=== PATIENT | male | born 1990 | race Caucasian/White ===

== ENCOUNTER 2017-03-19 08:16 | Emergency (ER) | payer MEDICAID ==
[~2017-03-19] VITALS: Ht 185.4 cm; Wt 105.0 kg
[2017-03-19] MEDS ORDERED: SODIUM CHLORIDE 0.9% 1,000 ML IV ONE (09:04)
[2017-03-19] MEDS ORDERED: MORPHINE SULFATE 4 MG/ML CPJ (NOT FOR IM USE) IV STA (09:04)
[2017-03-19] MEDS ORDERED: FAMOTIDINE 20MG/2ML VIAL IV STA (09:04)
[2017-03-19] MEDS ORDERED: ONDANSETRON HCL 4MG/2ML VIAL IV STA (09:04)
[2017-03-19 09:25] LABS: BASOPHILS % 0.4 % (0.0-2.0); EOSINOPHILS % 0.6 % (0.0-5.0); HEMATOCRIT. 43.5 % (42.0-52.0); HEMOGLOBIN. 14.9 g/dL (14.0-18.0); LYMPHOCYTES % 19.5 % (20.0-50.0); MEAN CORPUSCULAR HEMOGLOBIN 30.3 pg (28.0-32.0); MEAN CORPUSCULAR VOLUME 88.5 fL (80.0-94.0); MEAN PLATELET VOLUME 10.4 fl (7.4-10.4); MONOCYTES % 7.4 % (2.0-8.0); NEUTROPHILS % 72.1 % (40.0-76.0); PLATELET 160 x1000/uL (130-400); RED BLOOD CELL COUNT 4.92 mill/uL (4.7-6.1); RED CELL DISTRIBUTION WIDTH 13.3 % (11.6-14.6)
[2017-03-19 09:33] LABS: INR 1.1; PARTIAL THROMBOPLASTIN TIME 26.1 sec (24.0-34.0)
[2017-03-19 09:37] LABS: CARBON DIOXIDE 28 mEq/L (21-32); CHLORIDE 105 mEq/L (98-107)
[2017-03-19 10:07] LABS: CLARITY URINE CLEAR (CLEAR); COLOR URINE DARK YELLOW (YELLOW); GLUCOSE URINE NEGATIVE (NEGATIVE); KETONES URINE TRACE (NEGATIVE); LEUKOCYTE ESTERASE URINE NEGATIVE (NEGATIVE); NITRITE URINE NEGATIVE (NEGATIVE); OCCULT BLOOD URINE NEGATIVE (NEGATIVE); PROTEIN URINE NEGATIVE (NEGATIVE); SPECIFIC GRAVITY URINE 1.037 (1.005-1.030)
[2017-03-19 10:17] LABS: *AMPHETAMINES SCREEN URINE NEGATIVE (NEGATIVE); *BARBITURATES SCREEN URINE NEGATIVE (NEGATIVE); *BENZODIAZEPINES SCREEN URINE NEGATIVE (NEGATIVE); *COCAINE SCREEN URINE PRESUMTIVE POSITIVE (NEGATIVE); CANNABINOID URINE SCREEN PRESUMTIVE POSITIVE (NEGATIVE); METHADONE URINE SCREEN NEGATIVE (NEGATIVE); OPIATES URINE SCREEN PRESUMTIVE POSITIVE (NEGATIVE); PHENCYCLIDINE URINE SCREEN NEGATIVE (NEGATIVE)
[2017-03-19 12:01] VITALS: BP 151/102
[2017-03-19] MEDS ORDERED: IOHEXOL-300 100 ML BOTTLE ONE (13:13)
[2017-03-19] MEDS ORDERED: SODIUM CHLORIDE 0.9% 10ML VIAL ONE (13:13)
== END 2017-03-19 12:39 | disposition home or self-care (01) ==
LOC: ER 08:40
DX: R10.84 Generalized abdominal pain (principal); R11.10 Vomiting, unspecified; R19.7 Diarrhea, unspecified; R03.0 Elevated blood-pressure reading, without diagnosis of hypertension; F12.10 Cannabis abuse, uncomplicated; F14.10 Cocaine abuse, uncomplicated
CPT/HCPCS: 36415; 71010; 74177; 80053; 80305; 81003; 83690; 85025; 85610; 85730; 96361; 96374; 96375; 99285; A4216; J2270; J2405; J3490; J7030; Q9967; Z7610

== ENCOUNTER 2017-03-20 15:07 | Emergency (ER) | payer MEDICAID ==
[~2017-03-20] VITALS: Ht 182.9 cm; Wt 105.0 kg
[2017-03-20 15:17] VITALS: BP 152/99
== END 2017-03-20 20:59 | disposition left against medical advice (07) ==
LOC: ER 15:17
DX: R10.9 Unspecified abdominal pain (principal); Z53.21 Procedure and treatment not carried out due to patient leaving prior to being seen by health care provider

== ENCOUNTER 2022-06-12 07:41 | Emergency (ER) | payer MEDICAID ==
[~2022-06-12] VITALS: Ht 185.4 cm; Wt 98.0 kg
[2022-06-12 07:45] VITALS: BP 128/80
[2022-06-12] MEDS ORDERED: IBUP-2028 MT (09:19)
== END 2022-06-12 09:30 | disposition home or self-care (01) ==
LOC: ER 07:41
DX: H92.02 Otalgia, left ear (principal)
CPT/HCPCS: 99281

== ENCOUNTER 2022-09-04 03:24 | Emergency (ER) | payer MEDICAID, OTHER ==
[~2022-09-04] VITALS: Ht 185.4 cm; Wt 100.0 kg
[~2022-09-04 03:24] MED LIST: IBUP-2028 MT
[2022-09-04 03:43] VITALS: BP 152/98
[2022-09-04] MEDS ORDERED: PSEU120T56 MT (04:18)
[2022-09-04] MEDS ORDERED: CEFTRIAXONE SODIUM 500 MG/VIAL IM ONE (04:30)
[2022-09-04] MEDS ORDERED: AZITHROMYCIN 500 MG TABLET PO ONE (04:30)
[2022-09-06 04:07] LABS: NEISSERIA GONORRHOEAE NAA Negative (Negative)
== END 2022-09-04 04:36 | disposition home or self-care (01) ==
LOC: ER 03:24
DX: J06.9 Acute upper respiratory infection, unspecified (principal); Z11.3 Encounter for screening for infections with a predominantly sexual mode of transmission
CPT/HCPCS: 87426; 87491; 87591; 87804; 99283; J0696